=== PATIENT | male | born 1970 | race Caucasian/White ===

== ENCOUNTER 2017-04-06 09:33 | Inpatient (IN) | payer BC ==
[2017-04-06] MEDS ORDERED: Iopamidol 755 MG/ML 150 ML Bottle IV ONE (10:59)
[2017-04-06] MEDS: Sodium Chloride 0.9% 1,000 ML IV SCH (13:29)
[2017-04-06] MEDS: Sodium Chloride 0.9% 10 ML Syringe FLUSH PRN (13:55)
[2017-04-06] MEDS: Levofloxacin/Dextrose 5%-Water 750 MG in Premix Bag 1 BAG IV SCH (13:55)
[2017-04-06] MEDS: Acetaminophen 325 MG Tab PO PRN ×2 (15:19→20:52)
[2017-04-06] MEDS: Albuterol/Ipratropium 3.0-0.5 MG/3 ML Neb Soln NEB PRN ×2 (15:32→19:59)
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
[2017-04-07] MEDS: Acetaminophen 325 MG Tab PO PRN ×4 (00:30→16:50)
[2017-04-07] MEDS: guaiFENesin/Dextromethorphan 100-10 MG/5 ML Soln 5 ML Cup PO PRN ×3 (00:47→22:47)
[2017-04-07] MEDS: Sodium Chloride 0.9% 1,000 ML IV SCH ×2 (04:25→13:31)
[2017-04-07] MEDS ORDERED: Morphine 2 MG/ML Syringe IVPUSH PRN (08:36)
--- NOTE | 2017-04-07 08:40 | PCM.PN ---
- General Info Date of Service: 04/07/17 Subjective Update: 47-year-old white male admitted for pneumonia yesterday. Please been no improvement overnight, he still has headache that is now global moderate to severe. Tylenol as needed no improvement. He still continues to have sweats and fever, decreased appetite myalgias and a productive cough. - Patient Data Vitals - Most Recent: Last Vital Signs Temp 101.3 F H 04/07/17 00:00 Pulse 104 H 04/07/17 00:00 Resp 18 04/07/17 00:00 BP 141/85 H 04/07/17 00:00 Pulse Ox 94 L 04/07/17 00:00 Weight - Most Recent: 104.326 kg I&O - Last 24 Hours: Intake & Output 04/06/17 04/07/17 04/07/17 22:59 06:59 14:59 Intake Total 250 943 Balance 250 943 Lab Results Last 24 Hours: Laboratory Results - last 24 hr 04/06/17 04/06/17 04/06/17 Range/Units 09:45 09:45 09:45 WBC 8.6 (4.5-12.0) X10-3/uL RBC 4.90 (4.30-5.75) x10(6)uL Hgb 15.8 H (11.5-15.5) g/dL Hct 44.9 (30.0-51.3) % MCV 91.7 (80-96) fL MCH 32.3 (27.7-33.6) pg MCHC 35.3 (32.2-35.4) g/dL RDW 12.6 (11.5-15.5) % Plt Count 175 (125-369) X10(3)uL MPV 7.7 (7.4-10.4) fL Add Manual Diff Yes Neutrophils % (Manual) 83 H (46-82) % Lymphocytes % (Manual) 6 L (13-37) % Monocytes % (Manual) 11 (4-12) % Sodium 132 L (135-145) mmol/L Potassium 3.7 (3.5-5.3) mmol/L Chloride 99 L (100-110) mmol/L Carbon Dioxide 22 L (23-29) mmol/L BUN 14 (5-20) mg/dL Creatinine 0.9 (0.6-1.3) mg/dL Est Cr Clr Drug Dosing TNP Estimated GFR (MDRD) > 60 (>60) BUN/Creatinine Ratio 15.6 (9-20) Glucose 184 H (80-116) mg/dL Calcium 8.5 L (8.6-10.2) mg/dL Total Bilirubin 0.6 (0.1-1.3) mg/dL AST 35 H (5-27) IU/L ALT 47 H (14-26) IU/L Alkaline Phosphatase 50 L (56-112) IU/L Troponin I (0.02-0.06) NG/ML C-Reactive Protein 18.1 H* (0.0-1.0) mg/dL NT-Pro-B Natriuret Pep 49 (5-125) pg/mL Total Protein 7.7 (6.0-8.0) g/dL Albumin 4.0 (3.5-5.2) g/dL Globulin 3.7 g/dL Albumin/Globulin Ratio 1.1 Urine Color (YELLOW) Urine Appearance (CLEAR) Urine pH (5.0-6.5) Ur Specific [place] (1.010-1.025) Urine Protein (NEGATIVE) mg/dL Urine Glucose (UA) (NEGATIVE) mg/dL Urine Ketones (NEGATIVE) mg/dL Urine Occult Blood (NEGATIVE) Urine Nitrite (NEGATIVE) Urine Bilirubin (NEGATIVE) Urine Urobilinogen (NEGATIVE) mg/dL Ur Leukocyte Esterase (NEGATIVE) Urine RBC (0) Urine WBC (0) Ur Squamous Epith Cells (NS,R,O) Urine Bacteria (NS) 04/06/17 04/06/17 Range/Units 09:45 15:40 WBC (4.5-12.0) X10-3/uL RBC (4.30-5.75) x10(6)uL Hgb (11.5-15.5) g/dL Hct (30.0-51.3) % MCV (80-96) fL MCH (27.7-33.6) pg MCHC (32.2-35.4) g/dL RDW (11.5-15.5) % Plt Count (125-369) X10(3)uL MPV (7.4-10.4) fL Add Manual Diff Neutrophils % (Manual) (46-82) % Lymphocytes % (Manual) (13-37) % Monocytes % (Manual) (4-12) % Sodium (135-145) mmol/L Potassium (3.5-5.3) mmol/L Chloride (100-110) mmol/L Carbon Dioxide (23-29) mmol/L BUN (5-20) mg/dL Creatinine (0.6-1.3) mg/dL Est Cr Clr Drug Dosing Estimated GFR (MDRD) (>60) BUN/Creatinine Ratio (9-20) Glucose (80-116) mg/dL Calcium (8.6-10.2) mg/dL Total Bilirubin (0.1-1.3) mg/dL AST (5-27) IU/L ALT (14-26) IU/L Alkaline Phosphatase (56-112) IU/L Troponin I < 0.01 L (0.02-0.06) NG/ML C-Reactive Protein (0.0-1.0) mg/dL NT-Pro-B Natriuret Pep (5-125) pg/mL Total Protein (6.0-8.0) g/dL Albumin (3.5-5.2) g/dL Globulin g/dL Albumin/Globulin Ratio Urine Color Yellow (YELLOW) Urine Appearance Clear (CLEAR) Urine pH 5.0 (5.0-6.5) Ur Specific [place] 1.015 (1.010-1.025) Urine Protein Negative (NEGATIVE) mg/dL Urine Glucose (UA) Normal (NEGATIVE) mg/dL Urine Ketones Negative (NEGATIVE) mg/dL Urine Occult Blood Moderate H (NEGATIVE) Urine Nitrite Negative (NEGATIVE) Urine Bilirubin Small H (NEGATIVE) Urine Urobilinogen 1 H (NEGATIVE) mg/dL Ur Leukocyte Esterase Negative (NEGATIVE) Urine RBC 0-5 (0) Urine WBC 0-5 (0) Ur Squamous Epith Cells Occasional (NS,R,O) Urine Bacteria Rare H (NS) Med Orders - Current: Current Medications Acetaminophen (Tylenol) 650 mg PO Q4H PRN PRN Reason: analgesia/fever Last Admin: 04/07/17 04:50 Dose: 650 mg Albuterol/Ipratropium (Duoneb 3.0-0.5 Mg/3 Ml) 3 ml NEB Q4H PRN PRN Reason: Dyspnea Last Admin: 04/06/17 19:59 Dose: 3 ml Fluticasone Propionate (Flonase) 1 gm NASBOTH DAILY [facility] Guaifenesin/Phenylephrine HCl (Robitussin Dm) 10 ml PO Q4H PRN PRN Reason: Cough Last Admin: 04/07/17 04:51 Dose: 10 ml Levofloxacin/Dextrose 750 mg/ (Premix) 150 mls @ 100 mls/hr IV Q24H HALLIE Last Admin: 04/06/17 13:55 Dose: 100 mls/hr Sodium Chloride (Normal Saline) 1,000 mls @ 125 mls/hr IV ASDIRECTED HALLIE Last Admin: 04/07/17 04:25 Dose: 125 mls/hr Morphine Sulfate (Morphine) 2 mg IVPUSH Q4H PRN PRN Reason: Headache Sodium Chloride (Saline Flush) 10 ml FLUSH ASDIRECTED PRN PRN Reason: IV flush Last Admin: 04/06/17 13:55 Dose: 10 ml Discontinued Medications Iopamidol (Isovue-370 (76%)) 150 ml IV ONETIME ONE Stop: 04/06/17 11:00 Last Admin: 04/06/17 11:37 Dose: 108 ml - Exam Quality Assessment: Supplemental Oxygen General: Alert, Oriented HEENT: Pupils Equal, Pupils Reactive, EOMI, Mucous Membr. Moist/[place] Neck: Supple Lungs: Normal Respiratory Effort, Decreased Breath Sounds, Crackles, Rales - Problem List & Annotations (1) CAP (community acquired pneumonia) SNOMED Code(s): 470854287 Code(s): J18.9 - PNEUMONIA, UNSPECIFIED ORGANISM Status: Acute Current Visit: Yes Qualifiers: Lung location: unspecified part of lung (2) Head ache SNOMED Code(s): 39678648 Code(s): R51 - HEADACHE Status: Acute Current Visit: Yes Qualifiers: Headache type: unspecified Intractability: intractable - Problem List Review Problem List Initiated/Reviewed/Updated: Yes - My Orders Last 24 Hours: My Active Orders 04/06/17 12:56 Admission Status [Patient Status] [ADT] Routine 04/06/17 12:57 Antiembolic Devices [RC] .Routine Pulse Oximetry [RC] PRN Up ad Iva [RC] ASDIRECTED Vital Signs [RC] 08,16,00 Acetaminophen [Tylenol] 650 mg PO Q4H PRN Albuterol/Ipratropium [DuoNeb 3.0-0.5 MG/3 ML] 3 ml NEB Q4H PRN DVT/VTE Prophylaxis Reflex [OM.PC] Per Unit Routine Resuscitation Status Routine 04/06/17 13:00 Levofloxacin/Dextrose 5%-Water [Levaquin in D5W 750 MG/150 ML] 750 mg Premix Bag 1 bag IV Q24H Sodium Chloride 0.9% [Normal Saline] 1,000 ml IV ASDIRECTED 04/06/17 13:02 RT Aerosol Therapy [RC] ASDIRECTED 04/06/17 13:38 Sodium Chloride 0.9% [Saline Flush] 10 ml FLUSH ASDIRECTED PRN 04/06/17 13:40 CULTURE BLOOD [BC] Routine 04/06/17 13:45 CULTURE BLOOD [BC] Routine 04/06/17 15:40 LEGIONELLA,PNEUMO AG URINE [REF] Routine 04/06/17 Lunch Regular Diet [DIET] 04/07/17 00:29 Dextromethorphan/guaiFENesin [Robitussin DM] 10 ml PO Q4H PRN 04/07/17 08:36 Morphine 2 mg IVPUSH Q4H PRN 04/07/17 09:00 Fluticasone Propionate [Flonase] 1 gm NASBOTH DAILY 04/08/17 05:11 BASIC METABOLIC PANEL,BMP [CHEM] AM CBC WITH AUTO DIFF [HEME] AM - Plan Plan:: I will order a molecular assay on influenza. I'm still waiting for the legionella antigen in urine. In the meantime will continue with Levaquin. For the headache I've chosen Morphine to use for headache as needed .Robitussin AC to help the cough. He'll use Flonase for sinus congestion and repeat blood work in the morning ,including a CBC and CMP.
[2017-04-07] MEDS: Albuterol/Ipratropium 3.0-0.5 MG/3 ML Neb Soln NEB PRN ×3 (10:21→20:45)
[2017-04-07] MEDS: Fluticasone Propionate Nasal Spray 16 GM Bottle NASBOTH SCH (10:30)
[2017-04-07] MEDS: Levofloxacin/Dextrose 5%-Water 750 MG in Premix Bag 1 BAG IV SCH (13:35)
[2017-04-07] MEDS: Sodium Chloride 0.9% 10 ML Syringe FLUSH PRN (20:46)
[2017-04-08] MEDS: Albuterol/Ipratropium 3.0-0.5 MG/3 ML Neb Soln NEB PRN (06:08)
[2017-04-08] MEDS: Fluticasone Propionate Nasal Spray 16 GM Bottle NASBOTH SCH (08:36)
[2017-04-08] MEDS ORDERED: FLU Vacc QS 2017-18 (36mos UP)/PF 60 MCG/0.5 ML Syringe IM ONE (09:00)
--- NOTE | 2017-04-08 09:15 | PCM.PN ---
- General Info Date of Service: 04/08/17 Subjective Update: Patient reports marked improvement of his symptoms, including headache cough and sweating. His appetite has improved and he slept well overnight. His oxygenation need has gone down to 1 L by nasal cannula. He reports improvement of his shortness of breath on DuoNeb nebulization. Functional Status: Reports: Pain Controlled, Tolerating Diet, Ambulating - Review of Systems HEENT: Reports: No Symptoms Pulmonary: Reports: No Symptoms Cardiovascular: Reports: No Symptoms - Patient Data Vitals - Most Recent: Last Vital Signs Temp 98.2 F 04/08/17 07:18 Pulse 99 04/08/17 07:18 Resp 14 04/08/17 07:18 BP 121/86 04/08/17 07:18 Pulse Ox 93 L 04/08/17 07:40 Weight - Most Recent: 104.326 kg I&O - Last 24 Hours: Intake & Output 04/07/17 04/08/17 04/08/17 22:59 06:59 14:59 Intake Total 688 Balance 688 Lab Results Last 24 Hours: Laboratory Results - last 24 hr 04/08/17 04/08/17 Range/Units 06:15 06:15 WBC 5.3 (4.5-12.0) X10-3/uL RBC 4.23 L (4.30-5.75) x10(6)uL Hgb 14.0 (11.5-15.5) g/dL Hct 39.0 (30.0-51.3) % MCV 92.1 (80-96) fL MCH 33.1 (27.7-33.6) pg MCHC 36.0 H (32.2-35.4) g/dL RDW 12.8 (11.5-15.5) % Plt Count 186 (125-369) X10(3)uL MPV 8.0 (7.4-10.4) fL Neut % (Auto) 53.9 (46-82) % Lymph % (Auto) 29.5 (13-37) % [place] % (Auto) 13.1 H (4-12) % Eos % (Auto) 3 (1.0-5.0) % Baso % (Auto) 1 (0-2) % Neut # (Auto) 2.8 (1.6-8.3) # Lymph # (Auto) 1.6 (0.6-5.0) # [place] # (Auto) 0.7 (0.0-1.3) # Eos # (Auto) 0.2 (0.0-0.8) # Baso # (Auto) 0.0 (0.0-0.2) # Sodium 135 (135-145) mmol/L Potassium 3.7 (3.5-5.3) mmol/L Chloride 102 (100-110) mmol/L Carbon Dioxide 27 (23-29) mmol/L BUN 11 (5-20) mg/dL Creatinine 0.8 (0.6-1.3) mg/dL Est Cr Clr Drug Dosing 131.29 mL/min Estimated GFR (MDRD) > 60 (>60) BUN/Creatinine Ratio 13.8 (9-20) Glucose 121 H (80-116) mg/dL Calcium 8.4 L (8.6-10.2) mg/dL Denny Results Last 24 Hours: Microbiology 04/06/17 13:45 Aerobic Blood Culture - Preliminary Blood NO GROWTH AFTER 1 DAY Anaerobic Blood Culture - Preliminary NO GROWTH AFTER 1 DAY 04/06/17 13:40 Aerobic Blood Culture - Preliminary Blood NO GROWTH AFTER 1 DAY Anaerobic Blood Culture - Preliminary NO GROWTH AFTER 1 DAY Med Orders - Current: Current Medications Acetaminophen (Tylenol) 650 mg PO Q4H PRN PRN Reason: analgesia/fever Last Admin: 04/07/17 16:50 Dose: 650 mg Albuterol/Ipratropium (Duoneb 3.0-0.5 Mg/3 Ml) 3 ml NEB Q4H PRN PRN Reason: Dyspnea Last Admin: 04/08/17 06:08 Dose: 3 ml Fluticasone Propionate (Flonase) 0 gm NASBOTH DAILY HALLIE Last Admin: 04/08/17 08:36 Dose: 2 spray Guaifenesin/Phenylephrine HCl (Robitussin Dm) 10 ml PO Q4H PRN PRN Reason: Cough Last Admin: 04/07/17 22:47 Dose: 10 ml Levofloxacin/Dextrose 750 mg/ (Premix) 150 mls @ 100 mls/hr IV Q24H HALLIE Last Admin: 04/07/17 13:35 Dose: 100 mls/hr Morphine Sulfate (Morphine) 2 mg IVPUSH Q4H PRN PRN Reason: Headache Sodium Chloride (Saline Flush) 10 ml FLUSH ASDIRECTED PRN PRN Reason: IV flush Last Admin: 04/07/17 20:46 Dose: 10 ml Discontinued Medications Sodium Chloride (Normal Saline) 1,000 mls @ 125 mls/hr IV ASDIRECTED HALLIE Last Admin: 04/07/17 13:31 Dose: 125 mls/hr Influenza Virus Vaccine (Fluzone Quad [id number]) 60 mcg IM .ONCE ONE Stop: 04/08/17 09:01 Iopamidol (Isovue-370 (76%)) 150 ml IV ONETIME ONE Stop: 04/06/17 11:00 Last Admin: 04/06/17 11:37 Dose: 108 ml - Exam Quality Assessment: Supplemental Oxygen General: Alert, Oriented HEENT: Pupils Equal, Pupils Reactive, EOMI, Mucous Membr. Moist/[place] Neck: Supple Lungs: Clear to Auscultation, Normal Respiratory Effort - Problem List & Annotations (1) CAP (community acquired pneumonia) SNOMED Code(s): 876392415 Code(s): J18.9 - PNEUMONIA, UNSPECIFIED ORGANISM Status: Acute Current Visit: Yes Qualifiers: Lung location: unspecified part of lung (2) Head ache SNOMED Code(s): 51513421 Code(s): R51 - HEADACHE Status: Acute Current Visit: Yes Qualifiers: Headache type: unspecified Intractability: intractable - Problem List Review Problem List Initiated/Reviewed/Updated: Yes - My Orders Last 24 Hours: My Active Orders 04/07/17 08:36 Morphine 2 mg IVPUSH Q4H PRN 04/07/17 08:44 IS (RT) [RT Incentive Spirometry] [RC] ASDIRECTED 04/07/17 09:00 Fluticasone Propionate [Flonase] 0 gm NASBOTH DAILY - Plan Plan:: His influenza molecular assay was negative. I feel that he could go home on oral antibiotics, and prednisone or Robitussin for cough. I'll plan to discharge him later today once he is off oxygen totally.
--- NOTE | 2017-04-08 16:01 | DISCH ---
DISCHARGE DATE: 04/08/2017 REASON FOR ADMISSION: Pneumonia. DISCHARGE DIAGNOSES: 1. Pneumonia, community-acquired. 2. Headache. CONSULTATIONS: None. BRIEF HISTORY AND HOSPITAL COURSE: A 47-year-old male who was brought in because of a cough, fever, headache, upper respiratory symptoms, diagnosed with pneumonia on a chest CT. Negative influenza. The CT was negative for PE. He was placed on Levaquin and DuoNeb. Symptoms improved over 2 days. He felt well enough to go home and off oxygenation on the and discharged home on Levaquin to complete a course of 10 days and DuoNeb to use as needed for wheezing and shortness of breath. He will follow up in the office in 1 week. Please note that I spent more than 35 minutes in the discharge of this patient. /[id number] JESUS/KARTHIK
== END 2017-04-08 13:55 | disposition home or self-care (01) | DRG 139 ==
LOC: FB.CLBR 09:33 → FB.MS 12:42
PROVIDERS: ADMIT Family Medicine; ATTEND Family Medicine
DX: J18.9 Pneumonia, unspecified organism (principal); R51 Headache; R06.02 Shortness of breath; R09.02 Hypoxemia; Z88.6 Allergy status to analgesic agent; Z79.2 Long term (current) use of antibiotics; M21.6X9 Other acquired deformities of unspecified foot
CPT/HCPCS: 36415; 71020; 71275; 80048; 80053; 81001; 83880; 84484; 85025; 86140; 87040; 87449; 87631; 90686; 94150; 94640; A9270-GY; G0008; J1956; J7040; J7050; J7620; Q9967